=== PATIENT | male | born 1985 | race Caucasian/White ===

== ENCOUNTER 2019-03-07 17:13 | Emergency (ER) | payer BC ==
[~2019-03-07] VITALS: Ht 182.9 cm; Wt 77.1 kg
[2019-03-07] MEDS ORDERED: LANTUS SUBQ (17:29)
[2019-03-07] MEDS ORDERED: PRINIVIL10 MG PO (17:30)
[2019-03-07] MEDS ORDERED: NOVOLOG100 UNIT/M SUBQ (17:30)
[2019-03-07] MEDS ORDERED: ALPRAZOLAM XR3 MG PO (17:30)
[2019-03-07 17:55] LABS: URINE BILIRUBIN NEGATIVE (Negative); URINE BLOOD NEGATIVE (Negative); URINE CLARITY CLEAR; URINE COLOR YELLOW; URINE GLUCOSE-RANDOM NEGATIVE (Negative); URINE KETONES TRACE (Negative); URINE LEUKOCYTES NEGATIVE (Negative); URINE NITRITE NEGATIVE (Negative); URINE PROTEIN NEGATIVE (Negative); URINE UROBILINOGEN 0.2 E.U./dl (0.2-1.0)
[2019-03-07 17:55] LABS: ABSOLUTE EOSINOPHILS 0.2 thou/uL (0.0-0.7); ABSOLUTE LYMPHOCYTES 0.9 thou/uL (0.8-5.3); ABSOLUTE MONOCYTES 0.5 thou/uL (0.0-1.2); ABSOLUTE NEUTROPHILS 5.9 thou/uL (1.6-8.1); BASOPHILS 0.4 %; EOSINOPHILS 2.5 %; HEMATOCRIT 43.5 % (42.0-52.0); HEMOGLOBIN 15.7 gm/dL (14.0-18.0); LYMPHOCYTES 11.8 %; MCH 31.9 pg (26.0-34.0); MCHC 36.2 g/dL (28.0-37.0); MCV 88.3 fL (80.0-100.0); MPV 8.3 fl. (7.2-11.1); NUCLEATED RBCS 0 /100WBC; PLATELET COUNT* 190 thou/uL (150-400); POLYS 78.3 %; RBC 4.93 mil/uL (4.50-6.00); RDW-CV 11.9 % (10.5-14.5); WBC 7.5 thou/uL (4.0-11.0)
[2019-03-07 18:06] LABS: CALCIUM 8.3 mg/dL (8.5-10.1); POTASSIUM 3.5 mmol/L (3.5-5.1)
[2019-03-07 18:26] LABS: ALBUMIN 4.1 g/dL (3.4-5.0); TOTAL BILIRUBIN 0.6 mg/dL (<0.1-1.0); TOTAL PROTEIN 7.4 g/dL (6.4-8.2)
[2019-03-07 19:33] LABS: INFLUENZA A ANTIGEN Negative (Negative); INFLUENZA B ANTIGEN Negative (Negative)
[2019-03-07] MEDS ORDERED: VOLTAREN GEL 1100 G1 TOP (19:43)
[2019-03-07 19:52] VITALS: BP 112/80
== END 2019-03-07 19:54 | disposition home or self-care (01) ==
LOC: M.ERS 17:13
PROVIDERS: Physician Assistant
DX: B34.9 Viral infection, unspecified (principal); M62.830 Muscle spasm of back; M54.5 Low back pain; F17.210 Nicotine dependence, cigarettes, uncomplicated; I10 Essential (primary) hypertension; E10.9 Type 1 diabetes mellitus without complications